=== PATIENT | female | born 1960 | race Caucasian/White ===

== ENCOUNTER 2023-12-18 07:59 | Day surgery (SDC) | payer OTHER, SELFPAY ==
[2023-12-18] VITALS (8 sets, daily range): BP systolic 93–123; BP diastolic 50–64; PULSE 66–75; RESP 16; TEMP 36.6–37.1; O2SAT 97–99; BMI 25.0
[2023-12-18] MEDS: LACTATED RINGERS 1000 ML 1,000 ML 100 ML IV (07:40)
[2023-12-18] MEDS: SODIUM CHLORIDE 0.9 % (FLUSH) 10 ML SYRINGE IVF (08:17)
--- NOTE | 2023-12-18 08:22 | W.PM.H&PU ---
History & Physical Update History & Physical Update H&P Reviewed and patient assessed: No changes noted
[2023-12-18] MEDS: MIDAZOLAM HCL 1 MG/ML inj IVP (08:54)
[2023-12-18] MEDS: fentaNYL 100 MCG/2 ML inj IVP (08:54)
--- NOTE | 2023-12-18 09:02 | SUR.PREOP ---
TIME?OUT:?0553 PT/RN/MDA?VERIFICATION?OF?SURGICAL?SITE Right Wrist,?PROCEDURE Axe Block,?AND?CONSENT OBTAINED?PRIOR?TO?INVASIVE?PROCEDURE.
--- NOTE | 2023-12-18 09:15 | CRLHL7_ITS ---
For Patients: As a result of the Cures Act, medical imaging exams and procedure reports are released immediately into your electronic medical record. You may view this report before your referring provider. If you have questions, please contact your health care provider. Indication: ORIF right wrist. Technique: Intraoperative fluoroscopy of the right wrist: AP, lateral. Comparison: 12/08/2023. Findings/Impression: 37.9 seconds of fluoroscopy was provided to the Orthopedic service for the purposes volar plate fixation with total dose of 0.59 mGy. Operative changes of volar plate fixation of the distal right radius with intact appearing hardware and improvement in fracture cleft alignment. Dictated by Malik Laguerre MD @ 12/18/2023 1:56:20 PM (Electronically Signed)
[2023-12-18] MEDS: CEFAZOLIN 1 GM inj IVP (09:16)
--- NOTE | 2023-12-18 09:23 | P.NB_ITS ---
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 Images saved: Yes Medications given in 5ml increments after negative aspiration: Ropivicaine %: 0.5 mL: 20 Needle gauge: 20 Decadron (mg): 10 Precedex (mcg): 20 Patient tolerated procedure well: Yes Block Charges Block Charge (with Pro Fee): Axillary Nerve Use of Ultrasound Machine for Block: Yes- US Guidance/pain block
--- NOTE | 2023-12-18 10:36 | PM.ORPRC ---
Procedure Note Date of procedure: 12/18/23 Procedure: PREOPERATIVE DIAGNOSES: 1. Right distal radius fracture intra-articular, comminuted dorsally angulated and displaced, 3+ part POSTOPERATIVE DIAGNOSES: 1. Right distal radius fracture intra-articular, comminuted dorsally angulated and displaced, 3+ part NAME OF OPERATION: 1. Right distal radius open reduction with internal fixation of intraarticular fracture (3+ parts) 2. 81288 - intraoperative fluoroscopy up to 1 hour. SURGEON: Miguel Herrera MD INFORMATION TECHNOLOGY DATA ANALYST: Aleksander Healy PA-C - Of note, an business assistant was critical for this case to aide in patient positioning, limb manipulation, tissue retraction, closure, and splinting. ANESTHESIA: Supraclavicular block IMPLANTS: Synthes dual column volar locking plate with 2.7 mm nonlocking cortical screw and 2.4 mm proximal locking screws and distal locking pegs. TOURNIQUET: 56 minutes at 225 torr. INDICATIONS: The patient is a pleasant, 63-year-old female who sustained a right wrist injury after a fall. They had difficulty with use of the extremity and deformity. Workup included xrays which revealed an unstable fracture. Given these findings, surgery was recommended to stablize the fracture. FINDINGS: Closed, comminuted, dorsally angulated and displaced distal radius fracture with intra-articular extension, ulnar facet longitudinal split and a longitudinal split along the radial styloid. PROCEDURE: Following a thorough discussion of risks, benefits, and alternatives, consent was obtained and the operative extremity was marked. The patient was brought to the operating room and placed supine on the operating table. Induction of anesthesia was achieved. Appropriate time out was performed identifying proper patient, site and procedure. 1 gram of iv Ancef was administered within 1 hour of incision preoperatively. The right upper extremity was prepped and draped in the appropriate sterile fashion using ChloraPrep prep. The limb was exsanguinated and the tourniquet inflated. A longitudinal incision was made overlying the FCR tendon. Sharp incision through skin and subcutaneous tissue allowed identification of the FCR tendon. The superficial sheath was sharply divided, the tendon retracted ulnarly, and the deep fascial sheath also released. The FPL was retracted ulnarly and the pronator quadratus was sharply released from the radial border of the radius and subperiosteally elevated. The fracture was encountered and cleared of interposed periosteum / fracture hematoma. A reduction was performed and the appropriate plate selected. But prior to plate application, and interfragmentary screw was placed securing the longitudinal split of the radial styloid fragment. This was directed from radial towards ulnar and slightly distal towards proximal. Excellent securing of this fracture was achieved with this interfragmentary screw. Thereafter, temporary stabilization allowed C-arm fluoroscopy to confirm proper fracture reduction and plate positioning. The oblong hole was filled with a nonlocking screw followed by multiple distal locking pegs being careful to keep these in subchondral bone and extraarticular. Finally, the remaining proximal shaft screws were drilled and placed. Fluoroscopic imaging confirmed the improved position and showed the fracture to be stable. At this stage, the wound was thoroughly irrigated with normal saline. Closure performed with 0 Vicryl for the pronator quadratus, followed by deflation of the tourniquet. All major bleeding points were cauterized. Closure was then completed with 3-0 Vicryl for the subcutaneous, and 4-0 statafix for subcuticular closure. Dressings were applied along with a volar/dorsal splint. The patient was awoken from anesthesia and transferred to PACU in stable condition. PLAN: 1. Elevate operative extremity. 2. Ice, acetominphen or ibuprofen PRN. 3. Oxycodone for pain as needed. 4. Follow up with me in 10-16 days for wound check and splint removal.
--- NOTE | 2023-12-18 11:02 | W.ANESCHARGE ---
Anesthesia Charges Start Date/Time Anesthesia Start Date: 12/18/23 Anesthesia Start Time: 09:06 Stop Date/Time Anesthesia Stop Date: 12/18/23 Anesthesia Stop Time: 11:01
== END 2023-12-18 12:13 | disposition home or self-care (01) ==
PROVIDERS: Visit Provider Orthopaedic Surgery Sports Medicine
PROC: (CPT 25575; principal; 2023-12-18 09:15)
DX: S52.571A Other intraarticular fracture of lower end of right radius, initial encounter for closed fracture (principal); G89.18 Other acute postprocedural pain
CPT/HCPCS: 25609; 01830; 64417; 73110; 76000; 76942; A4580; C1713; J0690; J1100; J2250; J2371; J2405; J2704; J2795; J3010; J7120

== ENCOUNTER 2024-03-12 13:15 | Outpatient (RCR) | payer OTHER, SELFPAY ==
--- NOTE | 2024-01-11 07:09 | OT.OPOE ---
OT Outpatient Ortho Eval OT Outpatient Ortho Eval* Start: 01/10/24 15:06 Freq: Status: Active Protocol: Document 01/11/24 06:49 AMB (Rec: 01/11/24 07:07 AMB [id number]) E-signed By Sarai Moreno, OTR/L, CLT, GUN TESTER OT OP Ortho Eval Details Complexity Complexity Low Insurance Information Other Insurance Self Outpatient History/Precautions Current Condition/Medical Diagnosis Referring Provider Aleksander Healy PA-C Treatment Diagnosis Pain, swelling, limited ROM and weakness RUE due to DR orlando. , s/p ORIF Date of Onset DOI: 12/08/23, DOS: 12/18/23 Medical Conditions None Other Conditions Pt denies taking any medications, PMH is unremarkable, fx her ankle 20- 25yrs ago Medical/Functional History Medical History Reviewed Yes Prior Level of Function/Mobility Full, pain-free use of RUE. 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 Pt does all of the cooking, cleaning, shopping, etc. 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 Pt states she continued on to work and a co- worker provided a ride for her . Pt was seen in ER and later had ortho consult. Pt underwent ORIF on 12/18/[address] Herrera which went well, her cast was removed yesterday . Pt states her pain is well managed, rates it 1-2/10, described as aching, denies numbness / paresthesia. Pain Assessment Pain Present Pain Present Pain Reported Goniometric Comments Goniometric Comments Goniometric Comments 01/10/24 AROM of BUE is WNL throughout with the exception of the RUE forearm, wrist and hand. AROM of the RUE is as follows: Wrist flex: 40 Wrist ext: 30 Wrist UD: [address]: 20 Pronation: 50 Supination: 20 Composite fist: -.5cm from tip of MF to DPC Opposition: tip of 5th digit OT Objective Data Hand Hand Dominance Right Hand Function Pt has been working on using her right hand for light activities such as writing, but this has been very difficult. Skin/Wounds/Edema Comments 01/10/24 Incision is covered with surgical glue, no s/s of infection, no drainage. Mild swelling is appreciated throughout the RUE hand and wrist. OT Problems Problems Problems Decreased Strength,Decreased Range of Motion,Decreased Dexterity,Pain,Decreased Coordination,Lifting,Gripping, Pinching Other Problems Writing,Opening Containers, Dressing,Computer,Fasteners Patient Potential Good Assessment Assessment Assessment Pt is a very pleasant 63yo presenting to OT with orders for evaluation and treat due to pain, swelling, limited ROM and weakness in RUE following DR orlando with ORIF. Pt is struggling with all ADLs and IADLs that require gripping, pinching, lifting or FMC as she is right hand dominant and is not able to use this hand. 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 Pt will benefit from skilled OT intervention to address limitations and restore full, pain-free use of her RUE. Occupational Therapy Treatment Plan - OP Potential Rehabilitation Potential Good Set Goals Goals Set with Patient Yes Goals Goals 1. Pt will be independent and compliant with HEP in order to resume full, pain-free use of the involved UE. 3 weeks 2. Pt will demonstrate full, pain-free AROM of the involved UE in order to improve ability to grasp and hold. 6 weeks 3. 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 8 weeks. Treatment Plan Treatment Plan Evaluation,Edema Control Expected Frequency 1-2x Week Expected Duration 8-10 Weeks Home Program Home Program Home Program Initiated Home Program Specifics 01/10/24 Provided training and practice in HEP for AROM and non resisted mm pumps for edema reduction of the RUE. Following demo, pt is able to complete exs with minimal cues . Pt completed 10 reps of each ex. Pt was provided with written handout of all exs for use at home as well. Recertification Information Recertification Information Initial Certification Date 01/11/24 Recertification Due Date 04/10/24 Rehabilitation Potential Good Click To Default 'Per treatment plan' Per treatment plan Continued Plan of Care and Interventions Per treatment plan Provider Signature Shows Agreement With POC & Medical Necessity Physician Comment/Change Comment or Changes Physician NPI Number #
== END 2024-07-10 23:59 | disposition home or self-care (01) ==
PROVIDERS: Visit Provider Physician Assistant Surgical
DX: Z98.890 Other specified postprocedural states (principal); R52 Pain, unspecified; R60.9 Edema, unspecified; R29.898 Other symptoms and signs involving the musculoskeletal system; Z51.89 Encounter for other specified aftercare
CPT/HCPCS: 97110; 97140; 97165; X5282

== ENCOUNTER 2025-05-09 08:15 | Outpatient (CLI) | payer MEDICARE, SELFPAY ==
--- NOTE | 2025-05-09 09:29 | P.ANES_ITS ---
Anesthesia Charges Start Date/Time Anesthesia Start Date: 05/09/25 Anesthesia Start Time: 09:05 Stop Date/Time Anesthesia Stop Date: 05/09/25 Anesthesia Stop Time: 09:28 Coding CPT Codes CPT Codes: ATTILA LWR INTST NDMS NOS - 50013 ([id number]) P1 - NORMAL HEALTHY PATIENT, QK - ADMISSIONS DIRECTOR 2-4 CNCRNT ANES PROC, QX - ONLINE EDUCATION MANAGER SVC W/ MED DIRECTION
--- NOTE | 2025-05-09 09:29 | W.ANESCHARGE ---
Anesthesia Charges Start Date/Time Anesthesia Start Date: 05/09/25 Anesthesia Start Time: 09:05 Stop Date/Time Anesthesia Stop Date: 05/09/25 Anesthesia Stop Time: 09:28 Coding CPT Codes CPT Codes: ATTILA LWR INTST NDMS NOS - 49004 ([id number]) P1 - NORMAL HEALTHY PATIENT, QK - TECHNICAL SUPPORT COORDINATOR 2-4 CNCRNT ANES PROC, QX - DIRECTOR INDUSTRIAL RELATIONS SVC W/ MED DIRECTION
--- NOTE | 2025-05-09 10:37 | P.ANES_ITS ---
Anesthesia Charges Start Date/Time Anesthesia Start Date: 05/09/25 Anesthesia Start Time: 09:05 Stop Date/Time Anesthesia Stop Date: 05/09/25 Anesthesia Stop Time: 09:28 Coding CPT Codes CPT Codes: ATTILA LWR INTST NDMT NOS - 75231 ([id number]) P1 - NORMAL HEALTHY PATIENT, QK - ACQUISITIONS LOGISTICS ANALYST 2-4 CNCRNT ANES PROC, QX - POWDER SHOVELER SVC W/ MED DIRECTION
--- NOTE | 2025-05-09 10:37 | W.ANESCHARGE ---
Anesthesia Charges Start Date/Time Anesthesia Start Date: 05/09/25 Anesthesia Start Time: 09:05 Stop Date/Time Anesthesia Stop Date: 05/09/25 Anesthesia Stop Time: 09:28 Coding CPT Codes CPT Codes: ATTILA LWR INTST NDNH NOS - 64612 ([id number]) P1 - NORMAL HEALTHY PATIENT, QK - ACCOUNT INSTALLATION SPECIALIST 2-4 CNCRNT ANES PROC, QX - INDUSTRIAL SAFETY AND HEALTH SPECIALIST SVC W/ MED DIRECTION
--- OUTSIDE RECORDS SUMMARY | 2025-05-10 00:20 | XMS_ITS | Data Portability ---
[facility] [place] [facility] [address] [facility] [place] [address] Assessment No assessment recorded. Plan of Treatment Reminders Order Date Submit Date Provider Last Modified By Organization Details Last Modified Time Details Appointments None recorded. Lab None recorded. Referral None recorded. Procedures None recorded. Surgeries None recorded. Imaging None recorded. Medication Orders doxycycline hyclate 100 mg tablet 2023 [facility], [address] [place] [address], [address], 13:09:06 Patient TargetsNo targets recorded. Patient Instructions Encounter Date Encounter Id Patient Instructions Last Modified By Organization Details Last Modified Time 05/21/2024 [id number] discussed possible tick borne illnesses rash not typical of Lyme and tick was larger than typical for deer tick will start Doxycycline for coverage of possible tick borne illness monitor skin redness - if not improved on antibiotic call stop topical products as this might cause irritation of skin [id number] Not available 05/21/2024 22:25:23 Reason for Referral None Reported. Medical Equipment None Reported. Allergies No known drug allergies Medications Name Sig Start Date Stop Date Status Note LastModified by Organization Details LastModified Time doxycycline hyclate 100 mg tablet Take 1 tablet twice a day by oral route for 7 days. 024 active Not Available Not Available Not Avai lable Vitals Date Recorded Body height Body mass index (BMI) Body weight Oxygen saturation Oxygen saturation in Arterial blood by Pulse oximetry Heart rate Body temperature Systolic blood pressure Diastolic blood pressure Provider Name and Address Organization Details Last Updated DateTime 163.83 cm 24 kg/m2 29305.4 g 97 % 97 % 82 /min 97.3 [degF] 115 mm[Hg] 57 mm[Hg] Alcira Avilez [facility] 12:50:19 Social History None recorded. Functional Status None recorded. Mental Status None recorded. Family History Nothing Reported. Medical History No medical history recorded. Gynecological HistoryNo gynecological history recorded. Obstetrics History GPAL:G 0 P 0 0 0 0 Past Encounters Encounter ID Performer Location Encounter Start Date Encounter Closed Date Diagnosis/Indication Diagnosis SNOMED-CT Code Diagnosis ICD10 Code Diagnosis Note [id number] ADRIEL HIGGINBOTHAM MD [facility] [address] [facility] [place] [place] [address] 05/21/2024 12:45:49 05/21/2024 13:22:54 Infection of tick bite 993387925 L08.9 Health Concerns Section Related Observation LastModified by Organization Detai ls LastModified Time None Recorded Concern Status LastModified by Organization Details LastModified Time None Recorded Advance Directives Directive None Recorded Payers Insurance Date Sequence Insurance Name Policy Number Policy Parrish Covered Member ID Parrish Member ID Guarantor Name 05/21/2024 SLIDING FEE SCHEDULE - DISCOUNT Sabi Rivas Notes Date Note Type Note Provider Name and Address Organization Details Recorded Time 05/21/2024 text/html 63 yo female new patient here with concerns about possible tick bite infection. Patient reports that 8-9 days ago she noticed a sensation of irritation/itchin g on her upper R abdomen. Brushed at it and felt something that she brushed off. Saw the brushed of insect and reports that is looked like a wood tick. Did not appear engorged. Has been putting tea tree oil on it. Has been a bit itchy. slightly sore but not really painful. She reports that in the past 2 days has started to have redness surrounding the bite. Denies fever, chills or malaise. No joint pains PMH: negative for chronic medical problemsMeds: noneAll: NKDASH: currently uninsured. ADRIEL HIGGINBOTHAM MD [address] [facility] [place], [address], Located within [facility] 05/21/2024 22:26:03 OBGyn Episode No OBEpisode recorded.
--- OUTSIDE RECORDS SUMMARY | 2025-05-10 00:20 | XMS_ITS | Clinical Summary ---
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 4000 mL Active Active Problems Problem Noted Date Diagnosed Date HSIL (high grade squamous in traepithelial lesion) on Pap smear of cervix 06/15/2021 Overview (02/06/2025): 12/02/2004 HSIL 2005 Conization Per OV dated 06/15/2021: Normal paps after that until about 2010 then no medical care until 2020. 06/15/2021 NIL/HPV negative 01/2025 NIL/HPV negative Plan: HPV based testing in 3 years Resolved Problems Problem Noted Date Diagnosed Date Resolved Date H/O LEEP 11/13/2004 12/04/2024 Overview (07/02/2021): 2004 Conization. Plan: Pap/HPV due 06/2024 Encounters Date Type Department Care Team Description 05/09/2025 8:30 AM CDT Office Visit [facility] [address] [place] [address] Gerald Moreno MD Arrived 05/09/2025 Orders Only [facility] Scanner 1 scan: (1-Ord) INCOMING RECORDS-COLONOSCOPY, [facility], 05/09/2025 05/09/2025 Orders Only [facility] Scanner 1 scan: (1-Ord) INCOMING RECORDS-COLONOSCOPY, [facility], 05/09/2025 05/09/2025 Travel 04/24/2025 3:10 PM CDT Office Visit [facility] [address] [place] [address] Kellen Reis, Pre-Op Exam (Colonoscopy 05/09/25 [facility] ) 04/23/2025 Travel 04/08/2025 Telephone [facility] [address] [place] [address] Gerald Moreno MD Appointment Request (COLONOSCOPY RESCHEDULE ) 04/08/2025 Telephone [facility] [address] [place] [address] Gerald Moreno MD Screening 02/17/2025 Orders Only [facility] Scanner 1 scan: (1-Ord) INCOMING RECORDS-[facility], 02/17/2025 02/17/2025 Orders Only [facility] Scanner 1 scan: (1-Ord) INCOMING RECORDS-[facility], 02/17/2025 from Last 3 Months Immunizations Immunization Administration Dates Next Due COVID-19 VACCINE SPIKEVAX (M ODERNA 50MCG/0.5ML) 12YO+ PFS 09/20/2023 COVID-19 vaccine (Pfizer-BioNTech 30mcg/0.3mL) Chalino Lin MDV 02/20/2021,01/30/2021 Influenza,CCIIV4 PRESERV FREE 08/14/2020 Tdap 06/14/2012 Family History Medical History Relation Name Comments Arrhythmia Brother 2 Wai Pacemaker Alzheimer's disease Father of complications of Alzheimer's at age 85 Diabetes Mother type 2 Stroke Mother of complic ations of a stroke at age 86 Cancer-breast Sister 1 Rama stage 1 Melanoma Sister 3 Relation Name Status Comments Brother 1 New Alive Brother 2 Wai Alive Father Mother Sister 1 Rama Alive Sister 2 Tracy Alive Sister 3 Giovana Alive Sister 4 Gertrude Alive Social History Tobacco Use Types Packs/Day Years Used Date Smoking Tobacco: Never Smokeless Tobacco: Never Tobacco Cessation:Counseling Given: Yes Alcohol Use Standard Drinks/Week Comments Never 0 (1 standard drink = 0.6 oz pur e alcohol) PHQ-2 Answer Date Recorded PHQ-2 TOTAL SCORE 2 04/24/2025 Social Connections Answer Date Recorded Do you often feel lonely or isolated from those around you? 0 01/17/2025 Alcohol Use Answer Date Recorded How often do you have a drink containing alcohol ? 4 12/15/2023 How many drinks containing a lcohol do you have on a typical day when you are drinking? 0 12/15/2023 How often do you have five or more drinks on one occasion? 0 12/15/2023 Financial Resource Strain Answer Date R ecorded Difficulty of Paying Living Expenses 3 01/17/2025 Difficulty of Paying Living Expenses Not on file 01/17/2025 Food Insecurity Answer Date Recorded Do you worry your food will run out before you are able to buy more? 1 01/17/2025 Transportation Needs Answer Date Record ed Does lack of transportation keep you from medica l appointments? 1 01/17/2025 Does lack of transportation keep you from work, meetings or getting things that you need? 1 01/17/2025 Housing Stability Answer Date Recorded What is your housing situation today? 1 01/17/2025 Utilities Answer Date Recorded Do you have trouble paying f or utilities (for example, heat, electricity, water, phone)? 1 01/17/2025 Comments No Sex and Gender Information Value Date Recorded Sex Assigned at Not on file Legal Sex Female 5:24 AM [employer] Gender Identity Not on file Sexual Orientation Not on file Obstetrics History Para Term AB IAB SAB Ectopic Multiple Livin g Live Births 6 1 1 0 5 0 5 0 0 1 1 Date Outcome GA Total Labor Labor/2nd/3rd Weight Sex Type Anes PTL [place] A1 A5 Name Clin SAB SAB SAB SAB SAB Term M Vag Living Last Filed Vital Signs Vital Sign Reading Time Taken Comments Blood Pressure 117/69 04/24/2025 3:14 PM CDT Pulse 89 04/24/2025 3:14 PM CDT Temperature 36.5 C (97.7 F) 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 Respiratory Rate - - Oxygen Saturation 100% 04/24/2025 3:14 PM CDT Inhaled Oxygen Concentration - - Weight 67.1 kg (147 lb 14.4 oz) 04/24/2025 3:14 PM CDT Height 162 cm (5' 3.78) 04/24/2025 3:14 PM CDT Body Mass Index 25.56 04/24/2025 3:14 PM CDT Plan of Treatment Health Maintenance Due Date Last Done Comments Pneumococcal series for age 50+ (1 of 1 - PCV) 2008 Zoster (shingles) series for age 50+ (1 of 2) 2008 RSV vaccine for adults or (1 - Risk 60-74 years 1-dose series) 2018 Tetanus booster 06/14/2022 06/14/2012 Mammogram for age 45-75 06/22/2022 06/22/2021, 03/12 COVID-19 vaccine series ( season) 2024 09/20/2023, 10/13/2022, 10/14/2021, Additional history exists Influenza Vaccine (Season Ended) 2025 08/14/2020 Medicare Wellness for age 65+ 01/23/2026 01/22/2025 BMI (ht and wt on same day) for age 18+ 04/24/2026 04/24/2025, 01/22/2025, 12/15/2023, Additional history exists Depression screening for age 12+ 04/24/2026 04/24/2025, 06/15/2021 Lipids for age 45-75 01/22/2030 01/22/2025, 06/15/20 21 Colonoscopy through age 75 05/09/203505/09, 05/09/2025, 05/09/2025, Additional history exists Tdap Completed 06/14/2012 Hepatitis C screening for age 18-79 Completed 06/15/2021 DEXA/DXA scan for age 65+ Completed 02/03/2025 Hepatitis B series for 19+ Aged Out N o longer eligible based on patient's age to complete this topic Procedures Procedure Name Priority Date/Time Associated Diagnosis Comments COLONOSCOPY SCREENING Routine 05/09/2025 6:50 AM CDT Screening for colon cancer SCAN-COLONOSCOPY 05/09/2025 12:0 0 AM CDT SCAN-COLONOSCOPY 05/09/2025 12:0 0 AM CDT SCAN CORRESP-IMAGING 02/17/2025 12:00 AM CDT SCAN CORRESP-IMAGING 02/17/2025 12:00 AM CDT XR DXA BONE DENSITY 2 SITES AXIAL Routine 02/03/2025 9:51 AM CDT Height loss Menopause LIPID PANEL W REFLEX MEASURED LDL Routine 01/22/2025 4:56 PM CDT Lipid screening XR MAMMO HUSSAIN BILAT DIAG Routine 06/22/2021 2:25 PM CDT Breast lump ANTI HCV Routine 06/15/2021 4:07 PM CDT Need for hepatitis C screening test from Last 3 Months or Most Recently Relevant to Health Maintenance Results * SCAN-COLONOSCOPY (05/09/2025 12:00 AM CDT) us Scanner OTHER Final Result * SCAN-COLONOSCOPY (05/09/2025 12:00 AM CDT) us Scanner OTHER Final Result * SCAN CORRESP-IMAGING (02/17/2025 12:00 AM CDT) Only the most recent of2 resultswithin the time period is included. Anatomical Region Laterality Modality Other us Scanner OTHER Final Result * (ABNORMAL) XR DXA BONE DENSITY 2 SITES AXIAL (02/03/2025 9:51 AM CDT) Anatomical Region Laterality Modality Spine, HIPS, HIPL, HIPR Other Impressions 02/04/2025 7:49 PM CDT Osteopenia. RECOMMENDATIONS: The National Osteoporosis Foundation recommends pharmacologic treatment for patients with T-scores of -2.5 or less, patients with prior history of fragility fractures, or patients with 10-year probability of greater than 3% at hips or greater than 20% of suffering major osteoporotic fractures. Recommend continued optimization of calcium and vitamin D intake through dietary means and/or supplementation and regular exercise. Repeat scan recommended in 3-5 years. Ana Zavala PA-C [employer] 02/04/2025 Narrative 02/04/2025 7:49 PM CDT For Patients: Results are automatically released to your [facility] account once available, in compliance with federal regulations. This means that you may see your results before your provider has had a chance to review them. Please allow 2-3 business days for your provider to comment on the results. XR DXA Bone Mineral Density (BMD) EXAM LOCATION: [address] [address] PATIENT NAME: Sabi Rivas DATE OF : 1960 EXAM DATE: 02/03/2025 REQUESTING PROVIDER: Kellen Reis DO GENDER AT : female HEIGHT: 5' 3.78 (01/22/2025) WEIGHT: 151 lb (01/22/2025) MENOPAUSAL STATUS: Postmenopausal RACE/ETHNICITY: White RISK FACTORS: White Race CURRENT MEDICATION FOR BONE LOSS: NONE INDICATION: Height loss; Menopause COMPARISON DATE(S): None DXA scans are compared to prior studies for a patient only when the two (or more) studies were performed on the same scanner. It is not possible to compare data generated on one scanner to data from another because there are not standards in DXA equipment. This applies even if the two scanners are made by the same home health caregiver. PROCEDURE: Dual-energy x-ray absorptiometry performed with routine technique. Reporting is completed in the form of a T-score. The T-score represents the standard deviation from peak bone mass based on young healthy adult. A Z-score is used for diagnosis in premenopausal women, and for men under the age of 50. FINDINGS: RESULT LUMBAR SPINE L1 - L4 BMD: 0.917 g/cm2 T-Score: - 2.2 Z-Score: - 0.7 Change from prior: None RESULTS FEMUR Left femoral neck BMD: 0.799 g/cm2 T-Score: - 1.7 Z-Score: - 0.3 Change from prior: None Right femoral neck BMD: 0.803 g/cm2 T-Score: - 1.7 Z-Score: - 0.2 Change from prior: None Left hip BMD: 0.822 g/cm2 T-Score: - 1.5 Z-Score: - 0.3 Change from prior: None Right hip BMD: 0.810 g/cm2 T-Score: - 1.6 Z-Score: - 0.4 Change from prior: None WHO criteria: Normal: T-score at or above -1 SD Osteopenia: T-score between -1.1 and -2.4 SD Osteoporosis: T-score at or below -2.5 SD FRAX RISK CALCULATION (USED FOR OSTEOPENIA ONLY): 10-year probability of major osteoporotic fracture: 10.0%. 10-year probability of hip fracture: 1.3%. us Kellen Reis DO DEXA Final Resu lt * (ABNORMAL) LIPID PANEL W REFLEX MEASURED LDL (01/22/2025 4:56 PM CDT) [facility] CHOLESTEROL, TOTAL 214(H) <200 mg/dL [facility] HDL CHOLESTEROL 68 > OR = 50 mg/dL [facility] TRIGLYCERIDES 63 <150 mg/dL [facility] LDL-CHOLESTEROL 131(H) mg/dL (calc) [facility] Comment: Reference range: <100 Desirable range <100 mg/dL for primary prevention; <70 mg/dL for patients with CHD or diabetic patients with > or = 2 CHD risk factors. LDL-C is now calculated using the Marion calculation, which is a validated novel method providing better accuracy than the Friedewald equation in the estimation of LDL-C. Gerald THOMAS et al. LUCIEN. 2013;310(19): 5421-4273 (http://education.[employer]/faq/HKR830) CHOL/HDLC RATIO 3.1 <5.0 (calc) [facility] NON HDL CHOLESTEROL 146(H) <130 mg/dL (calc) [facility] Comment: For patients with diabetes plus 1 major ASCVD risk factor, treating to a non-HDL-C goal of <100 mg/dL (LDL-C of <70 mg/dL) is considered a therapeutic option. Blood BLOOD SPECIMEN / Unknown 01/22/2025 4:56 PM CDT 01/22/2025 4:57 PM CDT Narrative [facility] - 01/23/2025 4:49 AM CDT FASTING:NO FASTING: NO Kellen Reis DO CHEMISTRY Final Resu lt [facility] [address] [place] [address], [facility] [address] [place] [address] * XR MAMMO HUSSAIN BILAT DIAG (06/22/2021 2:25 PM CDT) Anatomical Region Laterality Modality BREASTS, Breast Left, Breast Right Bilateral Mammography 06/22/2021 3:22 PM CDT Impressions 06/22/2021 4:00 PM CDT Normal BILATERAL 3D mammograms and normal targeted LEFT breast ultrasound. No evidence of malignancy. RECOMMENDATIONS: Annual BILATERAL screening mammography. Results and recommendations discussed with the patient. BI-RADS Category 2: Benign Dictated by: Alpesh Duran MD @06/22/2021 3:22:02 PM / CRL:[email or web address] Narrative 06/22/2021 4:00 PM CDT For Patients: As a result of the Century Cures Act, medical imaging exams and procedure reports are released immediately into your electronic medical record. You may view this report before your referring provider. If you have questions, please contact your health care provider. DIGITAL DIAGNOSTIC BILATERAL MAMMOGRAM USING TOMOSYNTHESIS AND COMPUTER-AIDED DETECTION, 06/22/2021 LEFT BREAST ULTRASOUND, 06/22/2021 CLINICAL HISTORY: LEFT breast lump. COMPARISON: None. TECHNIQUE: Digital BILATERAL mammogram in five projections. Tomosynthesis and CAD utilized. Real-time ultrasound imaging of LEFT breast with imaging documentation. Scanning was performed by both the technologist and the radiologist. BREAST COMPOSITION: The breasts are heterogeneously dense, which may obscure small masses. FINDINGS: 3D CC and 3D MLO mammograms submitted bilaterally along with a 3D true lateral LEFT breast mammogram. Intramammary lymph nodes are present bilaterally along with benign calcifications. No suspicious mass or architectural distortion. No adenopathy. Targeted LEFT breast ultrasound in the area of concern 7 o'clock 4 cm from the nipple performed. In this location there is a prominent ridge of normal fibrous tissue. No solid mass or fibrocystic change. [facility] MAMMO Final Resu lt * ANTI HCV (06/15/2021 4:07 PM CDT) HEPATITIS C ANTIBODY Non-React tasha Non-React tasha 06/16/2021 3:19 PM CDT [facility] Comment:Antibodies to HCV no t detected; does not exclude the possibility of exposure to HCV. Blood BLOOD SPECIMEN / Unknown Venipuncture / Unknown 06/15/2021 4:07 PM CDT 06/15/2021 4:11 PM CDT [facility] SEND OUTS Final Resu lt [facility] [address] [place] [address], from Last 3 Months or Most Recently Relevant to Health Maintenance Insurance [facility] MEDICARE ADVANTAGE MR [facility] MEDICARE ADVANTAGE MR Care Teams Electric Blanket Packer Relationship Specialty Start Date End Date Kellen Reis DO [address] [place] [address] PCP - General Family Practice 01/10/25
== END 2025-05-09 08:16 | disposition home or self-care (01) ==
LOC: OP CLINIC 08:16
PROVIDERS: PCP Family Medicine; Visit Provider Internal Medicine Gastroenterology
DX: Z12.11 Encounter for screening for malignant neoplasm of colon (principal); D12.2 Benign neoplasm of ascending colon; K57.30 Diverticulosis of large intestine without perforation or abscess without bleeding
CPT/HCPCS: 00811; 45385; J2704